=== PATIENT | male | born 2000 | race Caucasian/White ===

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

== ENCOUNTER 2021-10-17 19:57 | Emergency (ER) | payer BC ==
[~2021-10-17] VITALS: Ht 182.9 cm; Wt 84.1 kg
[~2021-10-17 19:57] MED LIST: NORCO 325 MG-51 TAB PO
[2021-10-17 23:20] VITALS: BP 133/78; PULSE 74; TEMP 97.5
== END 2021-10-17 23:20 | disposition home or self-care (01) ==
LOC: COL.ER 19:57
DX: S61.411A Laceration without foreign body of right hand, initial encounter (principal); W26.8XXA Contact with other sharp object(s), not elsewhere classified, initial encounter

== ENCOUNTER → 2021-10-26 | Outpatient (CLI) | payer BC ==
[2021-10-26 12:41] VITALS: BP 139/877; PULSE 57
== END ==
LOC: COL.ER 12:24
DX: Z48.02 Encounter for removal of sutures (principal)